=== PATIENT | male | born 1965 | race Caucasian/White ===

== ENCOUNTER 2023-02-04 10:50 | Emergency (ER) | payer OTHER, SELFPAY ==
[2023-02-04 10:57] VITALS: BP 148/92; PULSE 76; RESP 18; TEMP 36.6; O2SAT 96
--- NOTE | 2023-02-04 10:59 | ED.SKABFB ---
HPI - Skin/Abscess/Foreign Bdy General Chief complaint: Skin/Abscess/Foreign Body Stated complaint: Rash/Right Leg Source: patient and RN notes reviewed History of Present Illness HPI narrative: 57 yo M presents to urgent care with complaints of right LE redness and tenderness. Pt states it has mild itching and he thought he had poison brett or something of the like. Pt states he has applied an OTC baking soda salve to the area without relief. Denies any fevers, chills, chest pain, SOB, or vomiting. Related Data Home Medications Medication Instructions Recorded Confirmed Aspir-81 02/04/23 amlodipine 5 mg tablet mg 02/04/23 colchicine 0.6 mg capsule mg 02/04/23 (Mitigare) evolocumab 140 mg/mL subcutaneous mg subcut 02/04/23 pen injector (Repathnella Andersonick) ezetimibe 10 mg tablet mg 02/04/23 metoprolol tartrate 25 mg tablet mg 02/04/23 rosuvastatin 20 mg tablet mg 02/04/23 tadalafil 20 mg tablet mg 02/04/23 Allergies Allergy/AdvReac Type Severity Reaction Status Date / Time No Known Allergies Allergy Unverified 07/19/13 17:29 Review of Systems Review of Systems: CONSTITUTIONAL: Denies fever, chills, or sweats. EYES: Denies visual changes, redness, or discharge. ENT: Denies otalgia and sore throat CARDIOVASCULAR: Denies chest pain, palpitations, or edema. RESPIRATORY: Denies cough or dyspnea. GASTROINTESTINAL: Denies abdominal pain, nausea, vomiting, or diarrhea. GENITOURINARY: Denies dysuria or hematuria. SKIN: Right lower leg redness and pain MUSCULOSKELETAL: Denies back pain, joint pain, or myalgia. NEUROLOGIC: Denies headache, numbness, or weakness. Pertinent positives per HPI. PMFSH Comments At the time of my signature, I reviewed and agree with the nursing past medical, surgical, social, and family history. There is no relevant family history pertinent to the patient complaint. Exam Narrative: GENERAL: This is a well-nourished, well-developed patient, in no apparent distress. HEAD: normocephalic, atraumatic. EYES: Sclera clear/white. Vision is grossly intact. EARS: External ears normal, auditory canals clear and without drainage. Hearing grossly intact. NOSE: External nose normal with no obvious nasal discharge, nares without redness, no rhinorrhea. THROAT: Mucous membranes moist, posterior pharynx clear. NECK: Neck supple, non-tender without lymphadenopathy, masses or thyromegaly. CARDIOVASCULAR: Regular rate RESPIRATORY: No respiratory distress SKIN: erythema to anterior, RLE NEURO: awake, alert, and oriented to person, place and time. There were no obvious focal neurologic abnormalities. EXTREMITIES: No clubbing, cyanosis, or edema. No joint tenderness, effusion, or edema noted. BACK: Nontender without deformity or crepitus. No flank tenderness. Course Course Level of Care: Express Care Visit Vital Signs Vital signs: Vital Signs Temperature 97.8 F 02/04/23 10:57 Pulse Rate 76 02/04/23 10:57 Respiratory Rate 18 02/04/23 10:57 Blood Pressure 148/92 H 02/04/23 10:57 Pulse Oximetry 96 02/04/23 10:57 Oxygen Delivery Room Air 02/04/23 10:57 Temperature 97.8 F 02/04/23 10:57 Pulse Rate 76 02/04/23 10:57 Respiratory Rate 18 02/04/23 10:57 Blood Pressure 148/92 H 02/04/23 10:57 Pulse Oximetry 96 02/04/23 10:57 Oxygen Delivery Room Air 02/04/23 10:57 reviewed. MDM - Skin/Abscess/Foreign Bdy MDM Narrative Medical decision making narrative: Clean with soap and water only; Avoid using alcohol and peroxide. Elevate the affected area if possible Alternate Tylenol/ibuprofen for as needed for pain Acetaminophen(Tylenol) 650-1000mg every 4-6hours with max of 4000mg/day. Nonsteroidal anti-inflammatory agent (NSAIDs-ibuprofen): 400mg every 4-6hours with max 2400mg/day Take antibiotic until it's gone. Please schedule a follow up visit with your personal physician for further evaluation and treatment within 3-5days OR if your symptoms pers
== END 2023-02-04 11:08 | disposition home or self-care (01) ==
PROVIDERS: Emergency Provider Nurse Practitioner Family
DX: L03.115 Cellulitis of right lower limb (principal); E78.00 Pure hypercholesterolemia, unspecified; I10 Essential (primary) hypertension
CPT/HCPCS: 99203; G0463